=== PATIENT | male | born 1960 | race Caucasian/White ===

== ENCOUNTER 2018-05-16 07:51 | Emergency (ER) | payer BC, OTHER ==
[~2018-05-16] VITALS: Ht 172.7 cm; Wt 115.7 kg
[2018-05-16 07:58] VITALS: BP_SYST 112
--- NOTE | 2018-05-16 08:02 | NUR ---
Ambulatory to bed 4
--- NOTE | 2018-05-16 08:15 | NUR ---
ER Dr. Browning at bedside examining patient.
--- NOTE | 2018-05-16 08:19 | NUR ---
Pt complaining of bilateral ear pain and sinus congestion, denies pain when swallowing, headache or recent fever. Pt stated he has been taking Tamaflu for 4 days without relief. Pt is A/O x 4, speaks [place], and is coopertive.
[2018-05-16] MEDS ORDERED: ACETAMINOPHEN 500 MG TABLET PO ONE (08:30)
[2018-05-16] MEDS ORDERED: ACETAMINOPHEN 500 MG TABLET ONE ×2 (09:11→09:17)
[2018-05-16 09:20] VITALS: BP_SYST 112
--- NOTE | 2018-05-16 09:20 | NUR ---
Patient given written and verbal discharge instructions and verbalizes understanding. ER MD discussed with patient the results and treatment provided. Patient in stable condition. ID arm band removed. No RX provide, but OTC medication recommendations discussed by MD. Patient educated on pain management and to follow up with PMD. Pain Scale 3/10. Opportunity for questions provided and answered. Medication side effect fact sheet provided.
== END 2018-05-16 09:20 | disposition home or self-care (01) ==
LOC: SED 07:51
DX: H92.03 Otalgia, bilateral (principal)
CPT/HCPCS: 99282

== ENCOUNTER 2018-08-08 07:13 | Day surgery (SDC) | payer OTHER ==
[~2018-08-08] VITALS: Ht 172.7 cm; Wt 117.9 kg
[~2018-08-08 07:13] MED LIST: CIPRO HC 10 ML OTIC SUSPENSION OT ONE
[2018-08-08] MEDS ORDERED: fentaNYL CITRATE/PF 100 MCG/2 ML AMP IVP PRN (09:00)
[2018-08-08] MEDS ORDERED: ONDANSETRON HCL 4 MG/2 ML VIAL IVP PRN (09:00)
[2018-08-08] MEDS ORDERED: SEVOFLURANE 15 MIN GAS INH ONE (09:02)
[2018-08-08] MEDS ORDERED: MIDAZOLAM HCL 5 MG/5 ML VIAL IVP ONE (09:02)
[2018-08-08] MEDS ORDERED: PROPOFOL 200MG/ 20ML VIAL (DIPRIVAN) IV ONE (09:02)
[2018-08-08] MEDS ORDERED: NS IRRIG SOLN 1000 ML IR ONE (09:02)
[2018-08-08] MEDS ORDERED: fentaNYL CITRATE/PF 100 MCG/2 ML AMP ONE (09:54)
[2018-08-08 12:44] VITALS: BP_SYST 115
== END 2018-08-08 11:30 | disposition home or self-care (01) ==
LOC: SDS 07:13 → SMU 07:14 → SDS 11:30
PROVIDERS: ATTEND Otolaryngology
DX: H69.82 Other specified disorders of Eustachian tube, left ear (principal); H65.02 Acute serous otitis media, left ear; G47.33 Obstructive sleep apnea (adult) (pediatric); E66.3 Overweight; I10 Essential (primary) hypertension; Z98.890 Other specified postprocedural states; Z68.30 Body mass index [BMI] 30.0-30.9, adult
CPT/HCPCS: 69436; J2250; J2704; J3010; J7120; L8699